=== PATIENT | female | born 1965 | race Caucasian/White ===

== ENCOUNTER 2017-03-17 13:44 | Emergency (ER) | payer MEDICAID, OTHER ==
[2017-03-17 14:04] VITALS: BMI 25.9
[2017-03-17] MEDS ORDERED: Sodium Chloride 0.9% 1,000 ML IV ONE (16:08)
--- NOTE | 2017-03-17 16:16 | C.PDOC ---
History Of Present Illness 50 y/o female presents to ED with complaints of productive yellow sputum cough, chills, congestion, generalized muscle pain and loss of appetite for 2 weeks. Upon arrival to ED patient had fever of 102 and was given Tylenol with fever reduced to 99.0. Patient also complaints of throat pain and states symptoms are progressing gradually and admits has cold like symptoms. Patient denies sob, chest pain, nausea, vomiting or any other complaints at this time. Time Seen by Provider: 03/17/17 15:30 Chief Complaint (Nursing): Flu-like Symptoms History Per: Patient History/Exam Limitations: no limitations Onset/Duration Of Symptoms: Days Current Symptoms Are (Timing): Still Present Associated Symptoms: Fever, Cough, Nasal Congestion Past Medical History Reviewed: Historical Data, Nursing Documentation, Vital Signs Vital Signs: Last Vital Signs Temp 99.3 F 03/17/17 15:28 Pulse 116 H 03/17/17 15:28 Resp 18 03/17/17 15:28 BP 103/66 03/17/17 15:28 Pulse Ox 99 03/17/17 16:23 - Medical History PMH: No Chronic Diseases Surgical History: No Surg Hx - [facility] Procedures LAPAROSCOP APPENDECTOMY (07/21/13) Family History: States: No Known Family Hx - Social History Hx Tobacco Use: No Hx Alcohol Use: No Hx Substance Use: No - Immunization History Hx Tetanus Toxoid Vaccination: Yes Hx Influenza Vaccination: Yes Hx Pneumococcal Vaccination: Yes Review Of Systems Constitutional: Positive for: Fever, Chills ENT: Positive for: Nose Congestion, Throat Pain Cardiovascular: Negative for: Chest Pain Respiratory: Positive for: Cough. Negative for: Shortness of Breath Gastrointestinal: Negative for: Nausea, Vomiting Skin: Negative for: Rash Physical Exam - Physical Exam Appears: Non-toxic, No Acute Distress Skin: Warm, Dry, No Rash Head: Atraumatic, Normacephalic Eye(s): bilateral: Normal Inspection Ear(s): Bilateral: Normal Oral Mucosa: Moist Throat: Erythema, No Exudate, No Drooling Neck: Supple Cardiovascular: Rhythm Regular, Other (Tachycardic ) Respiratory: Normal Breath Sounds, No Rales, No Rhonchi, No Wheezing Gastrointestinal/Abdominal: Soft, No Tenderness, No Guarding, No Rebound Extremity: Normal ROM, Capillary Refill (<2 seconds) Neurological/Psych: Oriented x3 ED Course And Treatment - Laboratory Results Result Diagrams: 03/17/17 16:39 03/17/17 16:39 Lab Interpretation: Abnormal (Elevated WBC 14.7 with left shift, Strep andRapid flu testsnegative) O2 Sat by Pulse Oximetry: 99 (RA) Pulse Ox Interpretation: Normal - Radiology CXR: Viewed By Me, Read By Radiologist CXR Interpretation: Yes: No Acute Disease Reevaluation Time: 17:23 Reassessment Condition: Improved (Afebrile after Tylenol. Patient appears comfortable without any respiratory distress.) Disposition Counseled Patient/Family Regarding: Studies Performed, Diagnosis, Need For Followup, Rx Given - Disposition Referrals: [facility] [Outside] Disposition: HOME/ ROUTINE Disposition Time: 17:24 Condition: IMPROVED Additional Instructions: Take a probiotic daily while on the antibiotics Prescriptions: Amoxicillin/Clavulanate [Augmentin 875 MG-125 MG] 1 tab PO BID #20 tab Instructions: Acute Bronchitis (ED) Forms: [employer] (Andorran) Print Language: ALBANIAN - Clinical Impression Clinical Impression: Acute bronchitis - Scribe Statement The provider has reviewed the documentation as recorded by the Scribdonna Allison All medical record entries made by the Charlaibdonna were at my direction and personally dictated by me. I have reviewed the chart and agree that the record accurately reflects my personal performance of the history, physical exam, medical decision making, and the department course for this patient. I have also personally directed, reviewed, and agree with the discharge instructions and disposition.
[2017-03-17 16:49] LABS: BASO % 0.3 % (0.0-2.0); LYMPH # 0.9 K/uL (1.0-4.3); LYMPH % 6.3 % (20.0-40.0); MEAN CELL VOLUME 89.1 fL (81.0-99.0); MEAN CORPUSCULAR HEMOGLOBIN 28.8 pg (27.0-31.0); MEAN CORPUSCULAR HGB CONC 32.3 g/dL (33.0-37.0); MONO # 0.7 K/uL (0.0-0.8); MONO % 4.9 % (0.0-10.0); NEUT % 88.5 % (50.0-75.0); NRBC % 0.1 % (0.0-2.0); PLATELET COUNT 345 K/uL (130-400); RBC 4.16 Mil/uL (3.80-5.20); RED CELL DISTRIBUTION WIDTH 13.4 % (11.5-14.5); WHITE BLOOD COUNT 14.7 K/uL (4.8-10.8)
--- NOTE | 2017-03-17 17:08 | RAD ---
HISTORY: SOB COMPARISON: Chest x-ray performed 04/17/11 TECHNIQUE: Chest PA and lateral FINDINGS: LUNGS: No focal consolidation. Please note that chest x-ray has limited sensitivity for the detection of pulmonary masses. PLEURA: No significant pleural effusion identified. No definite pneumothorax . CARDIOVASCULAR: The cardiomediastinal silhouette appears within normal limits of size. OSSEOUS STRUCTURES: No acute osseous abnormality identified. VISUALIZED UPPER ABDOMEN: Unremarkable. OTHER FINDINGS: None. IMPRESSION: No focal consolidation, significant pleural effusion, or definite pneumothorax identified.
[2017-03-17 17:10] LABS: ALBUMIN 3.7 g/dL (3.5-5.0); ALT/SGPT 62 U/L (9-52); AST/SGOT 47 U/L (14-36); BLOOD UREA NITROGEN 10 mg/dL (7-17); CALCIUM 8.3 mg/dl (8.6-10.4); GFR AFRICAN-AMERICAN > 60; GFR NON-AFRICAN AMERICAN > 60
[2017-03-17 17:33] LABS: BANDS 4 % (0-2); LYMPHOCYTE 8 % (20-40); MONOCYTE 5 % (0-10); NEUTROPHIL 83 % (50-75); PLATELET ESTIMATE NORMAL (NORMAL); TOTAL CELLS COUNTED 100
[2017-03-17 17:46] VITALS: BP 109/68; PULSE 87; RESP 20; TEMP 98.3; O2SAT 98
== END 2017-03-17 17:46 | disposition home or self-care (01) ==
LOC: C.ER 13:44
DX: J20.9 Acute bronchitis, unspecified (principal)
CPT/HCPCS: 71046; 80053; 84703; 85025; 87070; 87430; 87804; 96360; 99284; J7040

== ENCOUNTER 2017-09-04 18:49 | Emergency (ER) | payer MEDICAID ==
[2017-09-04 19:02] VITALS: BMI 27.9
[2017-09-04 19:07] VITALS: TEMP 98.1; O2SAT 100
--- NOTE | 2017-09-04 20:08 | C.PDOC ---
History Of Present Illness 52 year old female with no significant PMHx presents to the ED for evaluation of intermittent dizziness that has been positional today. Patient states she is currently not taking any medications and has no allergies. Patient reports had a similar episode 8 years ago. Patient denies fever, chills, nausea, vomit, diarrhea, focal deficits. Time Seen by Provider: 09/04/17 19:08 Chief Complaint (Nursing): Dizziness/Lightheaded History Per: Patient History/Exam Limitations: no limitations Onset/Duration Of Symptoms: Days, Intermittent Episodes Current Symptoms Are (Timing): Still Present Number Of Syncopal Episodes: 1 Activity At Onset Of Symptoms: Change In Head Position Associated Symptoms Preceding Syncopal Episode: No Predromal Symptoms (Sudden Onset) Seizure Or Post-ictal Symptoms: None Fall Associated With With Symptoms: No Recent travel outside of the [place]: No Additional History Per: Patient Past Medical History Reviewed: Historical Data, Nursing Documentation, Vital Signs Vital Signs: Last Vital Signs Temp 98.1 F 09/04/17 21:00 Pulse 80 09/04/17 21:00 Resp 20 09/04/17 21:00 BP 116/69 09/04/17 21:00 Pulse Ox 100 09/04/17 23:21 - Medical History PMH: No Chronic Diseases Surgical History: Appendectomy, - [facility] Procedures LAPAROSCOP APPENDECTOMY (07/21/13) Family History: States: Unknown Family Hx - Social History Hx Tobacco Use: No Hx Alcohol Use: No Hx Substance Use: No - Immunization History Hx Tetanus Toxoid Vaccination: Yes Hx Influenza Vaccination: Yes Hx Pneumococcal Vaccination: Yes Review Of Systems Constitutional: Negative for: Fever, Chills, Sweats, Weakness, Malaise, Weight loss Eyes: Negative for: Pain, Vision Change, Conjunctivae Inflammation ENT: Negative for: Ear Pain, Ear Discharge, Nose Pain, Nose Congestion, Mouth Pain, Mouth Swelling, Throat Pain Cardiovascular: Negative for: Chest Pain, Palpitations, Orthopnea, Paroxysmal Noc. Dyspnea, Edema, Light Headedness Respiratory: Negative for: Cough, Shortness of Breath, Hemoptysis, SOB with Excertion, Pleuritic Pain Gastrointestinal: Negative for: Nausea, Vomiting, Abdominal Pain, Diarrhea, Constipation, Melena Genitourinary: Negative for: Dysuria, Frequency, Incontinence Musculoskeletal: Negative for: Neck Pain, Shoulder Pain, Arm Pain Skin: Negative for: Rash Neurological: Positive for: Dizziness. Negative for: Weakness, Numbness, Incoordination, Headache Psych: Negative for: Anxiety, Depression Physical Exam - Physical Exam Appears: Non-toxic, In Acute Distress (mild acute distress from symptoms of vertigo ) Skin: Normal Color, Warm, Dry Head: Atraumatic, Normacephalic Eye(s): bilateral: Normal Inspection, PERRL, EOMI Ear(s): Bilateral: Normal Nose: Normal Oral Mucosa: Moist Tongue: Normal Appearing Lips: Normal Appearing Teeth: Normal Dentition Gingiva: Normal Appearing Neck: Normal ROM, Supple Chest: Symmetrical Cardiovascular: Rhythm Regular Respiratory: Normal Breath Sounds, No Rales, No Rhonchi, No Wheezing Gastrointestinal/Abdominal: Normal Exam, Bowel Sounds, Soft, No Tenderness, No Guarding, No Rebound Back: Normal Inspection Extremity: Normal ROM, No Tenderness, No Swelling Extremity: Bilateral: Atraumatic, No Pedal Edema, Normal Color And Temperature, Normal ROM Neurological/Psych: Oriented x3, Normal Speech Gait: Steady ED Course And Treatment ECG: Interpreted By Me, Viewed By Me ECG Rhythm: Sinus Rhythm Interpretation Of ECG: IL 180. QRS 84. QT 350. QTC 413. no ischemic changes Rate From EC (BPM) O2 Sat by Pulse Oximetry: 100 (ON RA) Pulse Ox Interpretation: Normal Medical Decision Making Medical Decision Making: Impression: intermittent dizziness Plan: * Meclizine 50 mg PO * Reglan 10 mg IVP 20:57 - Patient states she feel better on reevaluation and wants to be D/C home. Disposition Counseled Patient/Family Regarding: Diagnosis - Disposition Referrals: [facility] [place] [facility] [place] [facility] [Outside] [facility] [Outside] Disposition: HOME/ ROUTINE Disposition Time: 20:55 Condition: GOOD Prescriptions: Meclizine [Meclizine*] 25 mg PO Q6 PRN 3 Days #9 tab PRN Reason: dizziness Forms: [facility] (Citizen Of [place]) - Clinical Impression Clinical Impression: Dizziness, Vertigo - Scribe Statement The provider has reviewed the documentation as recorded by the Scribe Mat Zhou All medical record entries made by the Scribe were at my direction and personally dictated by me. I have reviewed the chart and agree that the record accurately reflects my personal performance of the history, physical exam, medical decision making, and the department course for this patient. I have also personally directed, reviewed, and agree with the discharge instructions and disposition.
[2017-09-04 21:02] VITALS: BP 116/69; PULSE 80; RESP 20
--- NOTE | 2017-09-06 19:58 | CARD ---
APPROVED REPORT EKG Measurement Heart [id number] [id number] <Conclusion> Normal sinus rhythm Normal ECG
== END 2017-09-04 21:16 | disposition home or self-care (01) ==
LOC: C.ER 18:49
DX: R42 Dizziness and giddiness (principal)
CPT/HCPCS: 82948; 96374; 99285; J2765

== ENCOUNTER 2018-06-16 08:42 | Emergency (ER) | payer SELFPAY ==
[2018-06-16 09:21] VITALS: BMI 25.2
[2018-06-16 09:30] VITALS: BP 103/67; PULSE 75; RESP 18; TEMP 98.5; O2SAT 97
[2018-06-16] MEDS ORDERED: Naproxen 550 mg Tab PO STA (09:35)
[2018-06-16] MEDS ORDERED: Naproxen 550 mg Tab PO ONE (09:47)
--- NOTE | 2018-06-16 10:14 | C.PDOC ---
History Of Present Illness 52 y/o female presents to the ER complaining of right 5th finger pain which began 2 days ago. Patient states that she has mild swelling in the finger. Patient reports that she has not tried any medications for the pain. She notes that she has an orthopedist because she has history of issues in her other fingers. She states that she has an appointment with her orthopedist on 06/20/18. Denies having weakness and numbness. Time Seen by Provider: 06/16/18 09:11 Chief Complaint (Nursing): Upper Extremity Problem/Injury History Per: Patient History/Exam Limitations: no limitations Onset/Duration Of Symptoms: Days Current Symptoms Are (Timing): Still Present Severity: Moderate Past Medical History Reviewed: Historical Data, Nursing Documentation, Vital Signs Vital Signs: Last Vital Signs Temp 98.5 F 06/16/18 09:28 Pulse 75 06/16/18 09:28 Resp 18 06/16/18 09:28 BP 103/67 06/16/18 09:28 Pulse Ox 97 06/16/18 09:28 - Medical History PMH: No Chronic Diseases Surgical History: Appendectomy, - [facility] Procedures LAPAROSCOP APPENDECTOMY (07/21/13) Family History: States: No Known Family Hx - Social History Hx Tobacco Use: No Hx Alcohol Use: No Hx Substance Use: No - Immunization History Hx Tetanus Toxoid Vaccination: Yes Hx Influenza Vaccination: Yes Hx Pneumococcal Vaccination: Yes Review Of Systems Except As Marked, All Systems Reviewed And Found Negative. Musculoskeletal: Positive for: Other (right 5th finger pain) Neurological: Negative for: Weakness, Numbness Physical Exam - Physical Exam Appears: Non-toxic, No Acute Distress Skin: Normal Color, Warm, Dry, Other (no erythema to right 5th finger) Head: Atraumatic, Normacephalic Eye(s): bilateral: Normal Inspection Nose: Normal Oral Mucosa: Moist Neck: Supple Chest: Symmetrical Extremity: Normal ROM (right 5th finger), Tenderness (tenderness over right 5th digit), Capillary Refill (< 2 seconds), Swelling (mild swelling to right 5th digit) Neurological/Psych: Oriented x3, Normal Speech, Normal Sensation (right hand) ED Course And Treatment O2 Sat by Pulse Oximetry: 97 (RA) Pulse Ox Interpretation: Normal - Other Rad X-Ray-Right Hand X-Ray: Viewed By Me, Read By Radiologist Interpretation: PROCEDURE: Right Hand Radiographs. HISTORY: RIGHT HAND PAIN. COMPARISON: None. TECHNIQUE: 3 views obtained. FINDINGS: BONES: No fracture or erosions appreciated. JOINTS: Diffuse mild degenerative joint space narrowing metacarpals interphalangeal and distal interphalangeal joints. No prominent spurring seen. SOFT TISSUES: Normal. OTHER FINDINGS: None. IMPRESSION: No fracture or erosions. Minimal-mild degenerative joint space na rrowing diffuse Progress Note: X-Ray-Right Hand ordered. Patient treated with Naproxen PO. On re-evaluation, patient felt better. Patient has been discharged and instructed to follow up with orthopedist as scheduled on 06/20/18. Disposition Counseled Patient/Family Regarding: Studies Performed, Diagnosis, Need For Followup, Rx Given - Disposition Referrals: Ivania Hollins MD [Staff Provider] - Disposition: HOME/ ROUTINE Disposition Time: 10:15 Condition: STABLE Additional Instructions: FOLLOW UP WITH YOUR HAND SURGEON SCHEDULED WEDNESDAY USE PAIN MEDICATION NEEDED RETURN TO EMERGENCY ROOM IF YOUR SYMPTOMS BECOME WORSE SEGUIR CON GUSMAN CIRUJANO DE MANO SEGN EL LUNES PREVISTO UTILICE MEDICAMENTOS PARA EL DOLOR SEGN LO NECESARIO VUELVA A LA PRATEEK DE EMERGENCIA SI MOIZ SNTOMAS SE HACEN PEOR Prescriptions: Naproxen 375 mg PO BID PRN #20 tablet PRN Reason: pain Instructions: Tendonitis Forms: [facility] (Upper Sorbian) Print Language: QATARI - Clinical Impression Clinical Impression: Finger tendinitis - Scribe Statement The provider has reviewed the documentation as recorded by the Levy Cummins Provider Attestation: All medical record entries made by the Scribe were at my direction and personally dictated by me. I have reviewed the chart and agree that the record accurately reflects my personal performance of the history, physical exam, medical decision making, and the department course for this patient. I have also personally directed, reviewed, and agree with the discharge instructions and disposition.
--- NOTE | 2018-06-16 11:16 | RAD ---
PROCEDURE: Right Hand Radiographs. HISTORY: RIGHT HAND PAIN COMPARISON: None. TECHNIQUE: 3 views obtained. FINDINGS: BONES: No fracture or erosions appreciated. JOINTS: Diffuse mild degenerative joint space narrowing metacarpals interphalangeal and distal interphalangeal joints. No prominent spurring seen. SOFT TISSUES: Normal. OTHER FINDINGS: None. IMPRESSION: No fracture or erosions. Minimal-mild degenerative joint space narrowing diffuse
== END 2018-06-16 11:12 | disposition home or self-care (01) ==
LOC: C.ER 08:42
DX: M77.9 Enthesopathy, unspecified (principal)